=== PATIENT | female | born 1945 | race Two or more races ===

== ENCOUNTER 2024-06-28 10:25 | Inpatient (IN) | payer BC, OTHER ==
[~2024-06-28] VITALS: Ht 162.6 cm; Wt 105.5 kg
--- NOTE | 2024-06-28 12:01 | ED.PDOC ---
History of Present Illness(SKN HPI Comments 79 year old female presents to the ED with chief complaint of wound check. Patient reports that she has had a wound to the top of her right hand due to a cat biting her for the past 3 weeks. Patient relays that it has worsened over time with redness, swelling, and pain. Patient states she had seen a hand specialist and was advised by them to come to the ED for IV antibiotics before surgery could be recommended for her hand. Patient notes she had been taking oral antibiotics prescribed by urgent care when it was new, however, no relief in her symptoms had been noted. Patient denies any numbness, weakness, fever, chills, or headache. 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 Family History Family History: Reviewed,noncontributory to illness Social History Smoker: Non-Smoker Alcohol: Denies ETOH Use Drugs: Denies Drug Use Lives In: Home Constitutional: denies: chills, diaphoresis, fatigue, fever, malaise, sweats, weakness, others EENTM: denies: blurred vision, double vision, ear bleeding, ear discharge, ear drainage, ear pain, ear ringing, eye pain, eye redness, hearing loss, mouth pain, mouth swelling, nasal discharge, nose bleeding, nose congestion, nose pain, photophobia, tearing, throat pain, throat swelling, voice changes, others Respiratory: denies: cough, hemoptysis, orthopnea, SOB at rest, shortness of breath, SOB with excertion, stridor, wheezing, others Cardiovascular: denies: chest pain, dizzy spells, diaphoresis, Dyspnea on exertion, edema, irregular heart beat, left arm pain, lightheadedness, palpitations, PND, syncope, others Gastrointestinal: denies: abdomen distended, abdominal pain, blood streaked bowels, constipated, diarrhea, dysphagia, difficulty swallowing, hematemesis, melena, nausea, poor appetite, poor fluid intake, rectal bleeding, rectal pain, vomiting, others Genitourinary: denies: abnormal vagina bleeding, burning, dyspareunia, dysuria, flank pain, frequency, hematuria, incontinence, pain, , vagina discharge, urgency, others Neurological: denies: dizziness, fainting, headache, left sided numbness, left sided weakness, numbness, paresthesia, pre-existing deficit, right sided numbness, right sided weakness, seizure, speech problems, tingling, tremors, weakness, others Musculoskeletal: denies: back pain, gout, joint pain, joint swelling, muscle pain, muscle stiffness, neck pain, others Integumetry: reports: wounds (Right hand wound with redness and pain); denies: bruises, change in color, change in hair/nails, dryness, laceration, lesions, lumps, rash, others Allergic/Immunocompromised: denies: Difficulty Healing, Frequent Infections, Hives, Itching, others Hematologic/Lymphatic: denies: anemia, blood clots, easy bleeding, easy bruising, swollen glands, others Endocrine: denies: excessive hunger, excessive sweating, excessive thirst, excessive urination, flushing, intolerance to cold, intolerance to heat, unexplained weight gain, unexplained weight loss, others Psychiatric: denies: anxiety, bipolar disorder, depression, hopeless, panic disorder, schizophrenia, sleepless, suicidal, others All Other Systems: Reviewed and Negative Physical Exam General Appearance: Moderate Distress, Normal HEENT: Normal ENT Inspection, PERRL/EOMI Neck: Full Range of Motion, Non-Tender, Normal, Normal Inspection Respiratory: Chest Non-Tender, Lungs Clear, No Accessory Muscle Use, No Respiratory Distress, Normal Breath Sounds Cardiovascular: No Edema, No JVD, No Murmur, No Gallop, Normal Peripheral Pulses, Regular Rate/Rhythm Breast Exam: Deferred Gastrointestinal: No Organomegaly, Non Tender, No Pulsatile Mass, Normal Bowel Sounds, Soft Genitalia: Deferred Pelvic: Deferred Rectal: Deferred Extremities: No calf tenderness, Normal capillary refill, Normal inspection, Normal range of motion, Non-tender, No pedal edema Musculoskeletal : Apperance: Normal Neurologic: Alert, loader demolder II-XII nml as Tested, No Motor Deficits, Normal Affect, Normal Mood, No Sensory Deficits Cerebellar Function: Normal Reflexes: Normal Skin: Dry, Normal Color, Warm, Wounds (Right base of the thumb redness) Lymphatic: No Adenopathy Was a procedure done? Was a procedure done?: No Differential Diagnosis (INTG) Differential Diagnosis: Cellulitis X-Ray, Labs, Meds, VS Vital Signs Date Time Temp Pulse Resp B/P (MAP) Pulse Ox O2 Delivery O2 Flow Rate FiO2 06/28/24 10:30 97.9 98 16 156/79 (104) 97 Patient alert. Complaining of redness on right base of the thumb. Vitals stable. Answering all questions. Blood pressure slightly elevated. Her hand surgeon wanted her to be admitted for intravenous antibiotics. Establish intravenous access. Was given fluids. Was given Rocephin. Was given clindamycin. Explained to the patient. Time of 1ST Reevaluation: 12:57 Reevaluation 1ST: Unchanged Patient Education/Counseling: Diagnosis, Treatment Family Education/Counseling: No Family Present Departure 1 Departure Time of Disposition: 13:20 Impression: Primary Impression: Cellulitis Qualified Codes: L03.113 - Cellulitis of right upper limb Additional Impression: Hypertensive urgency Disposition: ADMITTED INPATIENT Admit to: Med Surg Condition: Guarded Critical Care Note Critical Care Time?: No Stability Stability form required: No Heart Score Heart Score: Heart Score Response (Comments) Value History N/A 0 EKG N/A 0 Age N/A 0 Risk Factors N/A 0 Troponin N/A 0 Total 0 I personally scribed for EMILY THIBODEAUX MD ([email or web address]) on 06/28/24 at 12:01. Electronically submitted by Don Rubio ([email or web address]). EMILY THIBODEAUX MD Jun 28, 2024 12:01
[2024-06-28 14:04] LABS: Mean Corpuscular Hemoglobin 34.8 pg (28.0-32.0); White Blood Cell 28.6 10^3/uL (4.4-10.8)
[2024-06-28 14:06] LABS: Hematocrit 39.2 % (36.0-46.0); Hemoglobin 13.5 g/dL (12.2-16.2); Mean Corpuscular Hgb Conc. 34.5 g/dL (32.0-36.0); Mean Corpuscular Volume 100.8 fL (80.0-100.0); Platelet Count (auto) 197 10^3/uL (140-450); Red Blood Cells 3.89 10^6/uL (4.0-5.20); Red Cell Distribution Width 14.2 % (11.8-14.3)
[2024-06-28 14:15] LABS: Chloride 112 mmol/L (98-107); Potassium 5.4 mmol/L (3.5-5.1); Sodium 141 mmol/L (136-145)
[2024-06-28 14:16] LABS: Anion Gap 4 (5-15); Carbon Dioxide 25 mmol/L (20-31)
[2024-06-28] MEDS: SODIUM CHLORIDE 0.9% 1,000 ML IV ONE (14:16)
[2024-06-28 14:17] LABS: Band Neutrophils % (manual) 0; Basophils % (manual) 0 (0.0-2.0); Blast Cells 0; Calcium 9.9 mg/dL (8.7-10.4); Eosinophils % (manual) 0 (0-7); Myelocytes % 0; Promyelocytes % 0; Reactive Lymphocytes 0
[2024-06-28 14:21] LABS: BUN/Creatinine Ratio 15.8 (10.0-20.0); Blood Urea Nitrogen 15 mg/dL (9-23); Glucose 108 mg/dL (74-106)
[2024-06-28] MEDS: cefTRIAXone 1GM/50ML D5W 50 ML IV ONE (14:24)
[2024-06-28] MEDS: CLINDAMYCIN 300MG IV 50 ML IV ONE (14:25)
[2024-06-28 14:41] LABS: Lymphocytes % (manual) 88 (10.0-50.0); Metamyelocytes % 1; Monocytes % (manual) 1 (0-12); Platelet Estimate Adequate
[2024-06-28] MEDS ORDERED: ONDANSETRON HCL 4 MG/2 ML VIAL IV PRN (21:15)
[2024-06-28] MEDS ORDERED: MORPHINE SULFATE INJ 2 MG/ml SYRG IV PRN ×2 (21:15)
[2024-06-28] MEDS ORDERED: NITROGLYCERIN 0.4 MG SL TAB SL PRN (21:15)
[2024-06-28 21:41] LABS: Hematocrit 40.6 % (36.0-46.0); Hemoglobin 13.9 g/dL (12.2-16.2); Mean Corpuscular Hemoglobin 34.4 pg (28.0-32.0); Mean Corpuscular Hgb Conc. 34.2 g/dL (32.0-36.0); Mean Corpuscular Volume 100.8 fL (80.0-100.0); Platelet Count (auto) 213 10^3/uL (140-450); Red Blood Cells 4.03 10^6/uL (4.0-5.20); Red Cell Distribution Width 14.3 % (11.8-14.3)
[2024-06-28 21:50] LABS: White Blood Cell 32.4 10^3/uL (4.4-10.8)
[2024-06-28 21:52] LABS: Band Neutrophils % (manual) 0; Basophils % (manual) 0 (0.0-2.0); Blast Cells 0; Metamyelocytes % 0; Myelocytes % 0; Promyelocytes % 0
[2024-06-28 21:55] LABS: Alkaline Phosphatase 45 U/L (46-116); Calcium 9.7 mg/dL (8.7-10.4); Carbon Dioxide 24 mmol/L (20-31); Chloride 112 mmol/L (98-107); Glucose 160 mg/dL (74-106); Potassium 4.8 mmol/L (3.5-5.1)
[2024-06-28 21:56] LABS: Albumin 4.2 g/dL (3.2-4.8); Anion Gap 5 (5-15); Aspartate Aminotransferase 11 U/L (13-40); BUN/Creatinine Ratio 11.5 (10.0-20.0); Bilirubin, Total 0.6 mg/dL (0.2-1.0); Blood Urea Nitrogen 13 mg/dL (9-23); Sodium 141 mmol/L (136-145)
[2024-06-28 22:00] LABS: Alanine Aminotransferase < 9 U/L (7-40)
[2024-06-28] MEDS: SODIUM CHLOR 0.9% PF (SALINE LOCK) 10ML VIAL/SYR IV SCH (22:00)
[2024-06-28 22:27] LABS: Eosinophils % (manual) 1 (0-7); Lymphocytes % (manual) 70 (10.0-50.0); Monocytes % (manual) 3 (0-12); Reactive Lymphocytes 16
[2024-06-28 22:28] LABS: Anisocytosis Slight; Macrocytosis Slight; Platelet Estimate Adequate
[2024-06-28] MEDS: ENOXAPARIN SOD 40 MG/0.4 ML SYRINGE SC SCH (22:53)
[2024-06-28 23:00] VITALS: RESP 16; O2SAT 96
[2024-06-28 23:14] LABS: INR 1.03 (0.9-1.15); Partial Thromboplastin Time 26.1 SEC (24.5-34.5); Prothrombin Time 10.9 sec (9.3-11.8)
[2024-06-28] MEDS ORDERED: VANCOMYCIN PER PHARMACY 0 MG IV SCH (23:15)
--- NOTE | 2024-06-28 23:19 | DVHHPRES ---
History of Present Illness Resident Creating Document: VICKY HANSEN RESIDENT History of Present Illness Anna Toussaint is a 79 years old female with a PMH of HTN, chronic lymphocytic leukemia, breast cancer, skin cancer presented to the ED with the chief complaints of nonhealing wound on the right wrist. Patient reported 6-8 weeks ago she had cat bite on the right breast, went to urgent care, tried several method and medications but unable to drain and heal. Again she went to urgent care today due to nonhealing, with intermittent pain, they advised to go to ED. patient reported no fever, nausea, vomiting, chills, sweats and other associated symptoms Past Medical History HTN, chronic lymphocytic leukemia, breast cancer, skin cancer Past Surgical History Left breast lumpectomy in 2019, gastric bypass, skin cancer surgery Family History Breast cancer in mother Past Social History Lives alone. Denies smoking, alcohol and other drug abuse Review of Systems Constitutional: No: Fever, Chills, Sweats, Weakness, Malaise, Other Eyes: No: Pain, Vision change, Conjunctivae inflammation, Eyelid inflammation, Other, Redness ENT: No: Ear pain, Ear discharge, Nose pain, Nose discharge, Nose congestion, Mouth pain, Mouth swelling, Throat pain, Throat swelling, Other Respiratory: No: Cough, Dry, Shortness of breath, SOB with excertion, Wheezing, Hemoptysis, Pleuritic Pain, Sputum, Wheezing, Other Cardiovascular: No: Chest Pain, Palpitations, Orthopnea, Paroxysmal Noc. Dyspnea, Edema, Lt Headedness, Other Gastrointestinal: No: Nausea, Vomiting, Abdominal Pain, Diarrhea, Constipation, Melena, Hematochezia, Other Genitourinary: No Dysuria, No Frequency, No Incontinence, No Hematuria, No Retention, No Other Musculoskeletal: No: other, neck pain, shoulder pain, arm pain, back pain, hand pain, leg pain, foot pain Skin: Other (Right wrist wound) Neurological: No: Weakness, Numbness, Incoordination, Change in speech, Confus ion, Seizures, Other Allergies: Coded Allergies: NO KNOWN ALLERGIES (Unverified , 06/28/24) Medications Current Medications Medications Dose Ordered Sig/Daphney Route Start Time Stop Time Status Last Admin Dose Admin Sodium Chloride 10 ml Q8HR IV 06/28/24 22:00 Ondansetron HCl 4 mg Q4HP PRN IV 06/28/24 21:15 Acetaminophen 650 mg Q6HP PRN PO 06/28/24 21:15 Morphine Sulfate 2 mg Q4HPRN PRN IV 06/28/24 21:15 Enoxaparin Sodium 40 mg DAILY SC 06/28/24 21:15 06/28/24 22:53 40 MG Nitroglycerin 0.4 mg Q5MINP PRN SL 06/28/24 21:15 Morphine Sulfate 2 mg Q30M PRN IV 06/28/24 21:15 Exam Vital Signs Vital Signs Date Time Temp Pulse Resp B/P (MAP) Pulse Ox O2 Delivery O2 Flow Rate FiO2 06/28/24 14:10 76 15 139/76 (97) 99 06/28/24 14:10 Room Air 06/28/24 10:30 97.9 Exam Pt is lying on bed General Appearance: Alert, Oriented X3, Cooperative, Not in acute distress HEENT: Atraumatic, Mucous membranes moist/pink Respiratory: Clear to auscultation, Normal air movement, No added sounds Cardiovascular: Regular rate, Normal S1, Normal S2, No murmurs Abdominal: Active bowel sounds, Soft, no distention, no tenderness Extremities: Right wrist wound, tender, redness, no draining. No edema, Normal pulses, No tenderness/swelling Skin: Right wrist wound, tender, redness, no draining Neuro: Normal speech, sensorimotor deficits none Psych/Mental Status: Mental status NL, Mood NL Nurse was there as sharperone during examination Labs/Xrays Labs Test 06/28/24 21:20 Range/Units White Blood Count 32.4 *H 4.4-10.8 10^3/uL Red Blood Count 4.03 4.0-5.20 10^6/uL Hemoglobin 13.9 12.2-16.2 g/dL Hematocrit 40.6 36.0-46.0 % Mean Corpuscular Volume 100.8 H 80.0-100.0 fL Mean Corpuscular Hemoglobin 34.4 H 28.0-32.0 pg Mean Corpuscular Hemoglobin Concent 34.2 32.0-36.0 g/dL Red Cell Distribution Width 14.3 11.8-14.3 % Platelet Count 213 140-450 10^3/uL Mean Platelet Volume 6.9 6.9-10.8 fL Neutrophils (%) (Auto) 37.0-80.0 % Lymphocytes (%) (Auto) 10.0-50.0 % Monocytes (%) (Auto) 0.0-12.0 % Basophils (%) (Auto) 0.0-2.0 % Neutrophils # (Auto) 1.6-8.6 10 ^3/uL Lymphocytes # (Auto) 0.4-5.4 10 ^3/uL Monocytes # (Auto) 0-1.3 10 ^3/uL Differential Total Cells Counted 100.0 100 Neutrophils % (Manual) 10 L 37.0-80.0 Band Neutrophils % (Manual) 0 Lymphocytes % (Manual) 70 H 10.0-50.0 Monocytes % (Manual) 3 0-12 Eosinophils % (Manual) 1 0-7 Basophils % (Manual) 0 0.0-2.0 Metamyelocytes % (manual) 0 Myelocytes % (Manual) 0 Promyelocytes % (Manual) 0 Blast Cells % (Manual) 0 Reactive Lymphocytes 16 Platelet Estimate Adequate Anisocytosis (manual) Slight Macrocytosis Slight Sodium Level 141 136-145 mmol/L Potassium Level 4.8 3.5-5.1 mmol/L Chloride Level 112 H 98-107 mmol/L Carbon Dioxide Level 24 20-31 mmol/L Anion Gap 5 5-15 Blood Urea Nitrogen 13 9-23 mg/dL Creatinine 1.13 H 0.550-1.02 mg/dL Glomerular Filtration Rate Calc 50 >90 mL/min BUN/Creatinine Ratio 11.5 10.0-20.0 Serum Glucose 160 H 74-106 mg/dL Calcium Level 9.7 8.7-10.4 mg/dL Total Bilirubin 0.6 0.2-1.0 mg/dL Aspartate Amino Transferase (AST) 11 L 13-40 U/L Alanine Aminotransferase (ALT) < 9 7-40 U/L Alkaline Phosphatase 45 L 46-116 U/L B-Type Natriuretic Peptide 51.03 0-100 pg/mL Total Protein 7.0 5.7-8.2 g/dL Albumin 4.2 3.2-4.8 g/dL Assessment/Plan Assessment/Plan # right wrist wound abscess vs cellulitis -ordered wound culture and wound consult -initially given Rocephin and clindamycin -currently on vancomycin -consulted surgeon for further evaluation # leukocytosis likely due to chronic lymphocytic leukemia -monitor labs for now # # Hyperkalemia - Monitor lab # SIMA likely VMN -monitor lab -encourage oral fluids # uncontrolled hypertension -continuously monitor blood pressure -resume home meds Lovenox ppx for now No GIB ppx NPo after midnight Reconciled home meds Goals of care discussed with the patient for more than 27 minutes: Full code status Case management discussed with Dr. Song, patient and nurse Plan discussed with: Patient My Orders Orders - VICKY HANSEN RESIDENT Procedure Category Date Status Time Admit ADMIT 06/28/24 Transmitted 21:01 Allergies MELECIO 06/28/24 In Process 21:01 Code Status CODE 06/28/24 Transmitted 21:01 2 Gm Sodium Diet DIET 06/29/24 Transmitted Breakfast Sodium Chloride Lock PHA 06/28/24 In Process (Saline Lock Ns) 22:00 Ondansetron Hcl PHA 06/28/24 In Process (Zofran) 21:15 Complete Blood Count LAB 06/29/24 Verified 04:00 Comprehensive LAB 06/29/24 Verified Metabolic Panel 04:00 Cardiac DIET 06/29/24 Transmitted Diet-2gna,Lofat,Lochol Breakfast Acetaminophen Tablet PHA 06/28/24 In Process (Tylenol Tablet) 21:15 Morphine Sulfate PHA 06/28/24 In Process Injection 21:15 Enoxaparin Sodium PHA 06/28/24 In Process (Lovenox) 21:15 Nitroglycerin PHA 06/28/24 In Process Sublingual (Ntrostat 21:15 Morphine Sulfate PHA 06/28/24 In Process Injection 21:15 Oxygen By Nasal RT 06/28/24 Transmitted Cannula 21:01 Stat Ekg For Chest MELECIO 06/28/24 In Process Pain 21:01 Notify Of Changes MELECIO 06/28/24 In Process From Base 21:01 Coach Builder For MELECIO 06/28/24 In Process 24 Hours 21:01 Emergency Dysrhythmia MELECIO 06/28/24 In Process Protocol 21:01 Rhythm Strips Once MELECIO 06/28/24 In Process Every Shift 21:01 C-Reactive Protein LAB 06/28/24 In Process 22:39 Lactic Acid W/ Reflex LAB 06/28/24 In Process Order 22:39 Hemoglobin A1c LAB 06/28/24 In Process 22:39 Drug Screen LAB 06/28/24 Logged 22:39 Vitamin D, 25-Hydroxy LAB 06/28/24 In Process 22:39 Vitamin B12 LAB 06/28/24 In Process 22:39 Urinalysis LAB 06/28/24 Logged 22:39 Thyroid Stimulating LAB 06/28/24 In Process Hormone 22:39 PTPTT LAB 06/28/24 In Process 22:39 Folate (Folic Acid) LAB 06/28/24 In Process 23:01 Vancomycin Per PHA 06/28/24 Logged Pharmacy 23:15 * Wound Consult CONS 06/28/24 Transmitted Wound Culture W/ Gs KRYSTAL 06/28/24 Logged 23:06 * Surgical Consult CONS 06/28/24 Transmitted Hydralazine Injection PHA 06/28/24 Verified (Apresoline Inject 23:15 Date of Service: Jun 28, 2024 Billing Provider: ROSE SONG MD Common Visit Codes: 47316-JOTKRAC INP/OBS CARE (HIGH) Secondary Visit Codes: 99480-[id number] CARE PLAN 30 MINUTES VICKY HANSEN RESIDENT Jun 28, 2024 23:19 ROSE SONG MD Jun 29, 2024 13:36
[2024-06-28] MEDS: VANCOMYCIN 1GM/250ML KIT 200 ML IV SCH (23:52)
[2024-06-29] VITALS (9 sets, daily range): BP systolic 100–140; BP diastolic 60–75; PULSE 60–94; RESP 16–20; TEMP 97.7–98.7; O2SAT 93–98
[2024-06-29] MEDS ORDERED: METO25TA5 PO (02:09)
[2024-06-29] MEDS ORDERED: ANAS1TAB7 PO (02:09)
[2024-06-29] MEDS ORDERED: LOSA-533 PO (02:09)
[2024-06-29] MEDS ORDERED: IBAN1TAB2 PO (02:09)
[2024-06-29 05:51] LABS: Hematocrit 33.8 % (36.0-46.0); Red Cell Distribution Width 14.2 % (11.8-14.3); White Blood Cell 25.5 10^3/uL (4.4-10.8)
[2024-06-29 05:54] LABS: Hemoglobin 11.4 g/dL (12.2-16.2); Mean Corpuscular Hemoglobin 34.3 pg (28.0-32.0); Mean Corpuscular Hgb Conc. 33.9 g/dL (32.0-36.0); Mean Corpuscular Volume 101.3 fL (80.0-100.0); Platelet Count (auto) 163 10^3/uL (140-450); Red Blood Cells 3.33 10^6/uL (4.0-5.20)
--- NOTE | 2024-06-29 05:56 | DVH ---
CHEST RADIOGRAPH Indication:sob Technique: Single frontal view of the chest was obtained COMPARISON: None FINDINGS: Lines and Tubes: None Lungs: Mild congestion Pleura: No effusion. No pneumothorax. Cardiomediastinal contours: Unremarkable Bones: Unremarkable IMPRESSION: Mild congestion
[2024-06-29 06:08] LABS: Albumin 3.4 g/dL (3.2-4.8); Alkaline Phosphatase 36 U/L (46-116); Anion Gap 9 (5-15); Aspartate Aminotransferase 10 U/L (13-40); BUN/Creatinine Ratio 17.9 (10.0-20.0); Blood Urea Nitrogen 15 mg/dL (9-23); Calcium 8.6 mg/dL (8.7-10.4); Carbon Dioxide 20 mmol/L (20-31); Chloride 114 mmol/L (98-107); Glucose 99 mg/dL (74-106); Potassium 4.2 mmol/L (3.5-5.1); Sodium 143 mmol/L (136-145)
[2024-06-29 06:09] LABS: Bilirubin, Total 0.6 mg/dL (0.2-1.0); Total Protein 5.4 g/dL (5.7-8.2)
[2024-06-29 06:14] LABS: Band Neutrophils % (manual) 0; Basophils % (manual) 0 (0.0-2.0); Blast Cells 0; Eosinophils % (manual) 0 (0-7); Metamyelocytes % 0; Monocytes % (manual) 0 (0-12); Myelocytes % 0; Promyelocytes % 0
[2024-06-29 06:18] LABS: Alanine Aminotransferase < 9 U/L (7-40)
[2024-06-29 08:57] LABS: Lymphocytes % (manual) 81 (10.0-50.0); Macrocytosis Slight; Platelet Estimate Adequate; Reactive Lymphocytes 5
[2024-06-29] MEDS: VANCOMYCIN 750mg/150ml 150 ML IV SCH (10:05)
[2024-06-29] MEDS: IOHEXOL 350 MG/ML 100ML IJ ONE (11:28)
--- NOTE | 2024-06-29 13:20 | DVH ---
CLINICAL INFORMATION: 79 years old, Female; CAT BITE RIGHT WRIST. TECHNIQUE: Axial CT images of the CT RT UPPER EXTREMITY WITH CONT were obtained with IV contrast. Cor onal and sagittal reformatted images were obtained, reviewed, and stored. 3D reconstructed images wer e created at an independent workstation with concurrent physician supervision. All CT scans at this medical facility are performed using dose modulation techniques as appropriate to a performed exam i ncluding the following: Automated exposure control was utilized; adjustment of the MA and/or KV accor ding to patient size; and use of iterative reconstruction technique. CTDIvol = 7.8 mGy DLP = 252.62 mGy-cm COMPARISON: None FINDINGS: No acute fracture or dislocation. No abscess. No phlegmon. Small fluid collection in the skin measuring 1.7 cm at the medial wrist at the level of the 2nd proxi mal metacarpal. IMPRESSION: Possible skin boil in the skin measuring 1.7 cm at the medial wrist at the level of the 2nd metacarpa l.
[2024-06-29] MEDS ORDERED: fentaNYL CITRATE 100 MCG/2 ML VL ONE (14:08)
[2024-06-29] MEDS ORDERED: SODIUM CHLORIDE LOCK 10 ML ONE (14:08)
[2024-06-29] MEDS ORDERED: PROPOFOL 10 MG/ML 20 ML IV ONE (14:08)
[2024-06-29] MEDS ORDERED: MIDAZOLAM HCL 2MG/2ML 2ml VIAL (1mg/ml) ONE (14:09)
[2024-06-29] MEDS ORDERED: KETAMINE 50mg/ML 1ml syringe ONE (14:11)
[2024-06-29] MEDS: LIDOCAINE 1% HCL (LOCAL ANESTH.) INJ 20ML MDV ONE (14:12)
--- NOTE | 2024-06-29 14:13 | DVHINCON2 ---
Date of service: Jun 29, 2024 History of Present Illness 79-year-old [id number] female complaining of a chronic nonhealing wound on her right wrist secondary to a cat bite. Past Medical History Chronic lymphocytic leukemia. Hypertension. History of breast cancer status post left lumpectomy. Past Surgical History Left lumpectomy. Family History: Colon cancer G8 MOTHER FH: breast cancer G8 MOTHER FH: lung disease G8 FATHER FHx: liver cancer G8 BROTHER Hepatitis B G8 BROTHER Hypertension G8 FATHER Family History Noncontributory Social History No alcohol, tobacco, IV drug use Allergies: Coded Allergies: NO KNOWN ALLERGIES (Unverified , 06/28/24) Home Meds Reported Medications Ibandronate Sodium (IBANDRONATE SODIUM) 150 Mg Tab, 150 MG PO monthly, TAB 06/29/24 Anastrozole (Anastrozole) 1 Mg Tab, 1 TAB PO DAILY, #30 TAB 5 Refills 06/29/24 Losartan Potassium (Losartan Potassium) 25 Mg Tab, 25 MG PO DAILY for 30 Days, MG 06/29/24 Metoprolol Tartrate (Metoprolol Tartrate) 25 Mg Tab, 25 MG PO DAILY, MG 06/29/24 Current Medications Current Medications Medications (Trade) Dose Ordered Sig/Dapheny Route PRN Reason Start Time Stop Time Status Last Admin Sodium Chloride (Saline Lock Ns) 10 ml Q8HR IV 06/28/24 22:00 06/29/24 06:22 Ondansetron HCl (Zofran) 4 mg Q4HP PRN IV NAUSEA / VOMITING 06/28/24 21:15 Acetaminophen (Tylenol Tablet) 650 mg Q6HP PRN PO PAIN SCALE 1-3 OR TEMP>100.4 06/28/24 21:15 Morphine Sulfate 2 mg Q4HPRN PRN IV SEVERE PAIN (7-10 PAIN SCALE) 06/28/24 21:15 Enoxaparin Sodium (Lovenox) 40 mg DAILY SC 06/28/24 21:15 06/29/24 09:16 Nitroglycerin (Ntrostat Sublingual) 0.4 mg Q5MINP PRN SL FOR CHEST PAIN 06/28/24 21:15 Morphine Sulfate 2 mg Q30M PRN IV FOR CHEST PAIN 06/28/24 21:15 Vancomycin HCl 0 ml @ 0 mls/hr UD IV 06/28/24 23:15 Vancomycin HCl 200 ml @ 100 mls/hr Q2H IV 06/28/24 23:15 06/29/24 03:14 DC 06/29/24 02:05 Hydralazine HCl (Apresoline Injection) 10 mg Q6HP PRN IV SBP>150 06/28/24 23:15 Vancomycin HCl 150 ml @ 150 mls/hr Q12H IV 06/29/24 10:00 06/29/24 10:05 Hydromorphone HCl (Dilaudid Injection) 0.5 mg Q10M PRN IV SEVERE PAIN (7-10 PAIN SCALE) 06/29/24 14:15 06/29/24 14:56 UNV Hydromorphone HCl (Dilaudid Injection) 0.25 mg Q10M PRN IV MODERATE PAIN (4-6 PAIN SCALE) 06/29/24 14:15 06/29/24 14:46 UNV Morphine Sulfate 1 mg Q30M PRN IV SEVERE PAIN (7-10 PAIN SCALE) 06/29/24 14:15 06/29/24 16:16 UNV Vital Signs Vital Signs Date Time Temp Pulse Resp B/P (MAP) Pulse Ox O2 Delivery O2 Flow Rate FiO2 06/29/24 11:54 98.5 83 18 140/75 (96) 98 98.5 06/29/24 08:00 Room Air* 0 21 Physical Exam GEN: Elderly female in no acute distress. Alert. HEENT: Normocephalic atraumatic. Moist mucous membranes. Anicteric sclerae. CV: RRR Respiratory: CTAB ABD: Soft. Nontender nondistended Right upper extremity: There is a 2 cm hypertrophic erythematous inflamed tissue with a black necrotic eschar in the center with tenderness to palpation. Patient has full range of motion in her right hand. CT of the right wrist/hand showed small fluid collection in the skin measuring 1.7 cm at the medial wrist at the level of the 2nd proximal metacarpal Labs/Diagnostic Data Labs Test 06/29/24 05:17 06/28/24 21:20 Range/Units White Blood Count 25.5 H 4.4-10.8 10^3/uL Red Blood Count 3.33 L 4.0-5.20 10^6/uL Hemoglobin 11.4 #L 12.2-16.2 g/dL Hematocrit 33.8 #L 36.0-46.0 % Mean Corpuscular Volume 101.3 H 80.0-100.0 fL Mean Corpuscular Hemoglobin 34.3 H 28.0-32.0 pg Mean Corpuscular Hemoglobin Concent 33.9 32.0-36.0 g/dL Red Cell Distribution Width 14.2 11.8-14.3 % Platelet Count 163 140-450 10^3/uL Mean Platelet Volume 6.9 6.9-10.8 fL Neutrophils (%) (Auto) 37.0-80.0 % Lymphocytes (%) (Auto) 10.0-50.0 % Monocytes (%) (Auto) 0.0-12.0 % Basophils (%) (Auto) 0.0-2.0 % Neutrophils # (Auto) 1.6-8.6 10 ^3/uL Lymphocytes # (Auto) 0.4-5.4 10 ^3/uL Monocytes # (Auto) 0-1.3 10 ^3/uL Differential Total Cells Counted 100.0 100 Neutrophils % (Manual) 14 L 37.0-80.0 Band Neutrophils % (Manual) 0 Lymphocytes % (Manual) 81 H 10.0-50.0 Monocytes % (Manual) 0 0-12 Eosinophils % (Manual) 0 0-7 Basophils % (Manual) 0 0.0-2.0 Metamyelocytes % (manual) 0 Myelocytes % (Manual) 0 Promyelocytes % (Manual) 0 Blast Cells % (Manual) 0 Reactive Lymphocytes 5 Platelet Estimate Adequate Macrocytosis Slight Sodium Level 143 136-145 mmol/L Potassium Level 4.2 3.5-5.1 mmol/L Chloride Level 114 H 98-107 mmol/L Carbon Dioxide Level 20 20-31 mmol/L Anion Gap 9 5-15 Blood Urea Nitrogen 15 9-23 mg/dL Creatinine 0.84 0.550-1.02 mg/dL Glomerular Filtration Rate Calc 72 >90 mL/min BUN/Creatinine Ratio 17.9 10.0-20.0 Serum Glucose 99 74-106 mg/dL Calcium Level 8.6 L 8.7-10.4 mg/dL Total Bilirubin 0.6 0.2-1.0 mg/dL Aspartate Amino Transferase (AST) 10 L 13-40 U/L Alanine Aminotransferase (ALT) < 9 7-40 U/L Alkaline Phosphatase 36 L 46-116 U/L Total Protein 5.4 L 5.7-8.2 g/dL Albumin 3.4 3.2-4.8 g/dL Anisocytosis (manual) Slight Prothrombin Time 10.9 9.3-11.8 sec Prothrombin Time INR 1.03 0.9-1.15 Activated Partial Thromboplast Time 26.1 24.5-34.5 SEC Hemoglobin A1c 4.9 <5.7 % A1C Lactic Acid Level 1.2 0.4-2.0 mmol/L C-Reactive Protein High Sensitivity 0.16 <1.0 mg/dL B-Type Natriuretic Peptide 51.03 0-100 pg/mL Vitamin B12 Level 799 211-911 pg/mL Vitamin D 25-Hydroxy 89.6 30.0-100 ng/mL Folic Acid 17.85 >5.38 ng/mL Thyroid Stimulating Hormone (TSH) 2.93 0.55-4.78 uIU/mL Assessment 1. Right wrist abscess Plan/Recommendation 1. Incision and drainage of right wrist abscess Informed consent: The surgery and its risks including but not limited to infection, bleeding, open wound requiring local wound care, possible numbness in the area, possible perioperative FL or stroke were explained to the patient. All questions were answered to her satisfaction. She expressed verbal understanding and wished to proceed with the surgery. Plan discussed with: Patient MELANIA CHAKRABORTY MD Jun 29, 2024 14:13
[2024-06-29] MEDS: METOCLOPRAMIDE HCL 5MG/ml INJ 2ml VIAL IV ONE (14:15)
[2024-06-29] MEDS ORDERED: MORPHINE SULFATE INJ 2 MG/ml SYRG IV PRN (14:15)
[2024-06-29] MEDS ORDERED: HYDROmorphone HCL 2 MG/ML VL/or syr IV PRN (14:15)
--- NOTE | 2024-06-29 14:31 | DVHPN2 ---
Reviewed: Care Plan, H&P, Labs, Medications, Previous Orders, Radiology Changes from previous H/P or p: No Changes General: Per HPI Eyes: No Pain, No Vision change, No Conjunctivae inflammation, No Eyelid inflammation, No Other, No Redness ENT: No Ear pain, No Ear discharge, No Nose pain, No Nose discharge, No Nose congestion, No Mouth pain, No Mouth swelling, No Throat pain, No Throat swelling, No Other Cardiovascular: No Chest Pain, No Palpitations, No Orthopnea, No Paroxysmal Noc. Dyspnea, No Edema, No Lt Headedness, No Other Respiratory: No Cough, No Dry, No Shortness of breath, No SOB with excertion, No Wheezing, No Hemoptysis, No Pleuritic Pain, No Sputum, No Other Gastrointestinal: No Nausea, No Vomiting, No Abdominal Pain, No Diarrhea, No Constipation, No Melena, No Hematochezia, No Other Genitourinary: No Dysuria, No Frequency, No Incontinence, No Hematuria, No Retention, No Other Musculoskeletal: No other, No neck pain, No shoulder pain, No arm pain, No back pain, No hand pain, No leg pain, No foot pain Skin: Other (Right wrist wound) Objective Vitals Vital Signs Date Time Temp Pulse Resp B/P (MAP) Pulse Ox O2 Delivery O2 Flow Rate FiO2 06/29/24 11:54 98.5 83 18 140/75 (96) 98 98.5 06/29/24 08:00 Room Air* 0 21 Intake/Output Intake and Output 06/29/24 07:00 Intake Total 450 ml Balance 450 ml Intake Oral 50 ml IV Total 400 ml # Voids 1 General Appearance: Alert, Oriented X3, Cooperative, No acute distress Lungs: Clear to auscultation, Normal air movement Cardiovascular: Normal S1, Normal S2 Abdomen: Normal bowel sounds Medications Current Medications Medications Dose Ordered Sig/Daphney Route Start Time Stop Time Status Last Admin Dose Admin Sodium Chloride 10 ml Q8HR IV 06/28/24 22:00 06/29/24 06:22 10 ML Ondansetron HCl 4 mg Q4HP PRN IV 06/28/24 21:15 Acetaminophen 650 mg Q6HP PRN PO 06/28/24 21:15 Morphine Sulfate 2 mg Q4HPRN PRN IV 06/28/24 21:15 Enoxaparin Sodium 40 mg DAILY SC 06/28/24 21:15 06/29/24 09:16 40 MG Nitroglycerin 0.4 mg Q5MINP PRN SL 06/28/24 21:15 Morphine Sulfate 2 mg Q30M PRN IV 06/28/24 21:15 Vancomycin HCl 0 ml @ 0 mls/hr UD IV 06/28/24 23:15 Hydralazine HCl 10 mg Q6HP PRN IV 06/28/24 23:15 Vancomycin HCl 150 ml @ 150 mls/hr Q12H IV 06/29/24 10:00 06/29/24 10:05 150 MLS/HR Hydromorphone HCl 0.5 mg Q10M PRN IV 06/29/24 14:15 06/29/24 14:56 Hydromorphone HCl 0.25 mg Q10M PRN IV 06/29/24 14:15 06/29/24 14:46 Morphine Sulfate 1 mg Q30M PRN IV 06/29/24 14:15 06/29/24 16:16 Laboratory Results Laboratory Tests 06/29/24 05:17 Chemistry Test 06/28/24 21:20 06/29/24 05:17 Albumin 4.2 g/dL (3.2-4.8) 3.4 g/dL (3.2-4.8) Calcium Level 9.7 mg/dL (8.7-10.4) 8.6 mg/dL (8.7-10.4) L Total Protein 7.0 g/dL (5.7-8.2) 5.4 g/dL (5.7-8.2) L Coagulation Test 06/28/24 21:20 Prothrombin Time 10.9 sec (9.3-11.8) Prothrombin Time INR 1.03 (0.9-1.15) Activated Partial Thromboplast Time 26.1 SEC (24.5-34.5) Cardiac Markers Test 06/28/24 21:20 B-Type Natriuretic Peptide 51.03 pg/mL (0-100) LFT Test 06/28/24 21:20 06/29/24 05:17 Alanine Aminotransferase (ALT) < 9 U/L (7-40) < 9 U/L (7-40) Alkaline Phosphatase 45 U/L (46-116) L 36 U/L (46-116) L Aspartate Amino Transferase (AST) 11 U/L (13-40) L 10 U/L (13-40) L Total Bilirubin 0.6 mg/dL (0.2-1.0) 0.6 mg/dL (0.2-1.0) HgA1c, TSH Test 06/28/24 21:20 Hemoglobin A1c 4.9 % A1C (<5.7) Thyroid Stimulating Hormone (TSH) 2.93 uIU/mL (0.55-4.78) Labs and/or images reviewed: Labs reviewed by me, Image(s) reviewed by me Assessment/Plan Assessment/Plan Anna Toussiant is a 79 years old female with a PMH of HTN, chronic lymphocytic leukemia, breast cancer, skin cancer presented to the ED with the chief complaints of nonhealing wound on the right wrist. Patient reported 6-8 weeks ago she had cat bite on the right breast, went to urgent care, tried several method and medications but unable to drain and heal. Again she went to urgent care today due to nonhealing, with intermittent pain, they advised to go to ED. patient reported no fever, nausea, vomiting, chills, sweats and other associated symptoms # right wrist wound abscess vs cellulitis -ordered wound culture and wound consult -initially given Rocephin and clindamycin -currently on vancomycin -consulted surgeon for further evaluation # leukocytosis likely due to chronic lymphocytic leukemia -monitor labs for now # # Hyperkalemia - Monitor lab # SIMA likely [facility] -monitor lab -encourage oral fluids # uncontrolled hypertension -continuously monitor blood pressure -resume home meds 08/29/2023: pt undergoing I&D today Plan discussed with: Patient Date of Service: Jun 29, 2024 Billing Provider: GAVINO BEE DO Common Visit Codes: [id number] INP/OBS CARE(HIGH) GAVINO BEE DO Jun 29, 2024 14:31
[2024-06-29] MEDS: ceFAZolin 2 GM/D5W100ml 100 ML IV ONE (14:32)
[2024-06-29] MEDS ORDERED: LIDOCAINE W/ EPINEPHRINE 2% INJ 20ML VIAL ONE (15:07)
[2024-06-29] MEDS: HYDROmorphone HCL 2 MG/ML VL/or syr IV PRN (15:34)
[2024-06-29] MEDS: hydrALAZINE HCL 20 MG/ML VL IV PRN (16:22)
[2024-06-29] MEDS: PIPERACILLIN-TAZOB 3.375GM 100 ML IV SCH (17:00)
[2024-06-29] MEDS: METOPROLOL TARTRATE 25 MG TAB PO SCH (21:34)
[2024-06-29] MEDS: ACETAMINOPHEN 325 MG TAB PO PRN (21:41)
[2024-06-30] VITALS (7 sets, daily range): BP systolic 111–121; BP diastolic 48–73; PULSE 63–74; RESP 16–18; TEMP 96.7–98.4; O2SAT 93–96
[2024-06-30] MEDS: LOSARTAN POTASSIUM 25 MG TAB PO SCH (09:38)
--- NOTE | 2024-06-30 12:09 | DVHPN2 ---
Progress Note - Dictate Date Seen: Jun 30, 2024 Medical Necessity Reason Pt with a Central, PICC or Fol: No Subjective E: no major events o/n. no complaints. vital signs Vital Sign Date Time Temp Pulse Resp B/P (MAP) Pulse Ox O2 Delivery O2 Flow Rate FiO2 06/30/24 09:38 74 121/66 06/30/24 08:00 17 93 Room Air* 0 21 06/30/24 05:00 98.0 98.0 Total Intake and Output 06/29/24 06/29/24 06/30/24 15:00 23:00 07:00 Intake Total 250 ml 400 ml 900 ml Balance 250 ml 400 ml 900 ml medications Current Medications Medications Dose Ordered Sig/Daphney Route Start Time Stop Time Status Last Admin Dose Admin Sodium Chloride 10 ml Q8HR IV 06/28/24 22:00 06/30/24 05:38 10 ML Ondansetron HCl 4 mg Q4HP PRN IV 06/28/24 21:15 Acetaminophen 650 mg Q6HP PRN PO 06/28/24 21:15 06/30/24 09:37 650 MG Morphine Sulfate 2 mg Q4HPRN PRN IV 06/28/24 21:15 Enoxaparin Sodium 40 mg DAILY SC 06/28/24 21:15 06/30/24 09:38 40 MG Nitroglycerin 0.4 mg Q5MINP PRN SL 06/28/24 21:15 Morphine Sulfate 2 mg Q30M PRN IV 06/28/24 21:15 Vancomycin HCl 0 ml @ 0 mls/hr UD IV 06/28/24 23:15 Hydralazine HCl 10 mg Q6HP PRN IV 06/28/24 23:15 06/29/24 16:22 10 MG Vancomycin HCl 150 ml @ 150 mls/hr Q12H IV 06/29/24 10:00 06/29/24 21:36 150 MLS/HR Losartan Potassium 25 mg DAILY PO 06/30/24 10:00 06/30/24 09:38 25 MG Metoprolol Tartrate 25 mg BID PO 06/29/24 22:00 06/30/24 09:38 25 MG Piperacillin Sod/ Tazobactam Sod 100 ml @ 25 mls/hr Q8H IV 06/29/24 16:00 06/30/24 08:00 25 MLS/HR objective GEN: NAD RIGHT HAND: surgical site clean. no bleeding. laboratory and microbiology Laboratory Tests 06/30/24 09:56 06/29/24 05:17 Test 06/29/24 05:17 Range/Units Serum Glucose 99 74-106 mg/dL Assessment/Plan A: 1. s/p I+D right hand/wrist abscess stable from surgery POV. P: 1. local wound care (BID moist to dry or qday with xeroform) 2. f/u in clinic on 07/11. Plan discussed with: Patient MELANIA CHAKRABORTY MD Jun 30, 2024 12:09
--- NOTE | 2024-06-30 15:33 | DVHPN2 ---
Reviewed: Care Plan, H&P, Labs, Medications, Previous Orders, Radiology Changes from previous H/P or p: No Changes General: Per HPI Eyes: No Pain, No Vision change, No Conjunctivae inflammation, No Eyelid inflammation, No Other, No Redness ENT: No Ear pain, No Ear discharge, No Nose pain, No Nose discharge, No Nose congestion, No Mouth pain, No Mouth swelling, No Throat pain, No Throat swelling, No Other Cardiovascular: No Chest Pain, No Palpitations, No Orthopnea, No Paroxysmal Noc. Dyspnea, No Edema, No Lt Headedness, No Other Respiratory: No Cough, No Dry, No Shortness of breath, No SOB with excertion, No Wheezing, No Hemoptysis, No Pleuritic Pain, No Sputum, No Other Gastrointestinal: No Nausea, No Vomiting, No Abdominal Pain, No Diarrhea, No Constipation, No Melena, No Hematochezia, No Other Genitourinary: No Dysuria, No Frequency, No Incontinence, No Hematuria, No Retention, No Other Musculoskeletal: No other, No neck pain, No shoulder pain, No arm pain, No back pain, No hand pain, No leg pain, No foot pain Skin: Other (Right wrist wound) Objective Vitals Vital Signs Date Time Temp Pulse Resp B/P (MAP) Pulse Ox O2 Delivery O2 Flow Rate FiO2 06/30/24 12:41 97.9 63 18 120/48 (72) 96 97.9 06/30/24 08:00 Room Air* 0 21 Intake/Output Intake and Output 06/30/24 07:00 Intake Total 1550 ml Balance 1550 ml Intake Oral 800 ml IV Total 750 ml # Voids 2 General Appearance: Alert, Oriented X3, Cooperative, No acute distress Lungs: Clear to auscultation, Normal air movement Cardiovascular: Normal S1, Normal S2 Abdomen: Normal bowel sounds Medications Current Medications Medications Dose Ordered Sig/Daphney Route Start Time Stop Time Status Last Admin Dose Admin Sodium Chloride 10 ml Q8HR IV 06/28/24 22:00 06/30/24 13:42 10 ML Ondansetron HCl 4 mg Q4HP PRN IV 06/28/24 21:15 Acetaminophen 650 mg Q6HP PRN PO 06/28/24 21:15 06/30/24 09:37 650 MG Morphine Sulfate 2 mg Q4HPRN PRN IV 06/28/24 21:15 Enoxaparin Sodium 40 mg DAILY SC 06/28/24 21:15 06/30/24 09:38 40 MG Nitroglycerin 0.4 mg Q5MINP PRN SL 06/28/24 21:15 Morphine Sulfate 2 mg Q30M PRN IV 06/28/24 21:15 Vancomycin HCl 0 ml @ 0 mls/hr UD IV 06/28/24 23:15 Hydralazine HCl 10 mg Q6HP PRN IV 06/28/24 23:15 06/29/24 16:22 10 MG Vancomycin HCl 150 ml @ 150 mls/hr Q12H IV 06/29/24 10:00 06/30/24 13:21 150 MLS/HR Losartan Potassium 25 mg DAILY PO 06/30/24 10:00 06/30/24 09:38 25 MG Metoprolol Tartrate 25 mg BID PO 06/29/24 22:00 06/30/24 09:38 25 MG Piperacillin Sod/ Tazobactam Sod 100 ml @ 25 mls/hr Q8H IV 06/29/24 16:00 06/30/24 08:00 25 MLS/HR Laboratory Results Laboratory Tests 06/29/24 05:17 06/30/24 09:56 Microbiology Microbiology Date/Time Source Procedure Growth Status 06/29/24 15:32 Hand Right Gram Stain - Final Resulted 06/29/24 15:32 Hand Right Anaerobic Culture - Preliminary Resulted 06/29/24 15:32 Hand Right Aerobic Culture - Preliminary Resulted Assessment/Plan Assessment/Plan Anna Toussaint is a 79 years old female with a PMH of HTN, chronic lymphocytic leukemia, breast cancer, skin cancer presented to the ED with the chief complaints of nonhealing wound on the right wrist. Patient reported 6-8 weeks ago she had cat bite on the right breast, went to urgent care, tried several method and medications but unable to drain and heal. Again she went to urgent care today due to nonhealing, with intermittent pain, they advised to go to ED. patient reported no fever, nausea, vomiting, chills, sweats and other associated symptoms # right wrist wound abscess vs cellulitis -ordered wound culture and wound consult -initially given Rocephin and clindamycin -currently on vancomycin -consulted surgeon for further evaluation # leukocytosis likely due to chronic lymphocytic leukemia -monitor labs for now # # Hyperkalemia - Monitor lab # SIMA likely [facility] -monitor lab -encourage oral fluids # uncontrolled hypertension -continuously monitor blood pressure -resume home meds 06/29/2024: pt undergoing I&D today 06/30/2024: continue with IV Abx for another Plan discussed with: Patient My Orders Orders - GAVINO BEE DO Procedure Category Date Status Time Dietary NOTICE 06/30/24 Transmitted Recommendations 14:12 Date of Service: Jun 30, 2024 Billing Provider: GAVINO BEE DO Common Visit Codes: [id number] INP/OBS CARE(HIGH) GAVINO BEE DO Jun 30, 2024 15:33
[2024-07-01 01:00] VITALS: BP 137/68; PULSE 70; RESP 17; TEMP 98; O2SAT 97
[2024-07-01 05:00] VITALS: BP 130/67; PULSE 78; RESP 18; TEMP 97.4; O2SAT 95
[2024-07-01 06:03] LABS: Hemoglobin 11.2 g/dL (12.2-16.2); Red Cell Distribution Width 14.2 % (11.8-14.3)
[2024-07-01 06:05] LABS: Hematocrit 32.1 % (36.0-46.0); Mean Corpuscular Volume 100.2 fL (80.0-100.0); Platelet Count (auto) 152 10^3/uL (140-450); White Blood Cell 23.8 10^3/uL (4.4-10.8)
[2024-07-01 06:15] LABS: Band Neutrophils % (manual) 0; Basophils % (manual) 0 (0.0-2.0); Blast Cells 0; Eosinophils % (manual) 0 (0-7); Metamyelocytes % 0; Myelocytes % 0; Promyelocytes % 0
[2024-07-01 07:45] LABS: Lymphocytes % (manual) 89 (10.0-50.0); Macrocytosis Slight; Monocytes % (manual) 1 (0-12); Platelet Estimate Adequate; Reactive Lymphocytes 2
[2024-07-01 08:45] VITALS: BP 142/71; PULSE 66; RESP 18; TEMP 97.8; O2SAT 93
[2024-07-01 13:18] VITALS: BP 145/82; PULSE 86; RESP 20; TEMP 97.9; O2SAT 95
--- NOTE | 2024-07-01 14:11 | DVHPN2 ---
Progress Note - Dictate Date Seen: Jul 01, 2024 Medical Necessity Reason Pt with a Central, PICC or Fol: No Subjective E: no major events o/n. no complaints. vital signs Vital Sign Date Time Temp Pulse Resp B/P (MAP) Pulse Ox O2 Delivery O2 Flow Rate FiO2 07/01/24 13:18 97.9 86 20 145/82 (103) 95 97.9 06/30/24 20:00 Room Air* 0 21 Total Intake and Output 06/30/24 06/30/24 07/01/24 15:00 23:00 07:00 Intake Total 250 ml 850 ml 100 ml Balance 250 ml 850 ml 100 ml medications Current Medications Medications Dose Ordered Sig/Daphney Route Start Time Stop Time Status Last Admin Dose Admin Sodium Chloride 10 ml Q8HR IV 06/28/24 22:00 07/01/24 06:18 10 ML Ondansetron HCl 4 mg Q4HP PRN IV 06/28/24 21:15 Acetaminophen 650 mg Q6HP PRN PO 06/28/24 21:15 06/30/24 17:02 650 MG Morphine Sulfate 2 mg Q4HPRN PRN IV 06/28/24 21:15 Enoxaparin Sodium 40 mg DAILY SC 06/28/24 21:15 07/01/24 10:33 40 MG Nitroglycerin 0.4 mg Q5MINP PRN SL 06/28/24 21:15 Morphine Sulfate 2 mg Q30M PRN IV 06/28/24 21:15 Vancomycin HCl 0 ml @ 0 mls/hr UD IV 06/28/24 23:15 Hydralazine HCl 10 mg Q6HP PRN IV 06/28/24 23:15 06/29/24 16:22 10 MG Vancomycin HCl 150 ml @ 150 mls/hr Q12H IV 06/29/24 10:00 07/01/24 10:31 150 MLS/HR Losartan Potassium 25 mg DAILY PO 06/30/24 10:00 07/01/24 10:33 25 MG Metoprolol Tartrate 25 mg BID PO 06/29/24 22:00 06/30/24 09:38 25 MG Piperacillin Sod/ Tazobactam Sod 100 ml @ 25 mls/hr Q8H IV 06/29/24 16:00 07/01/24 10:31 25 MLS/HR objective GEN: NAD RIGHT HAND: surgical site clean. no bleeding. laboratory and microbiology Laboratory Tests 07/01/24 05:43 06/29/24 05:17 Test 06/29/24 05:17 Range/Units Serum Glucose 99 74-106 mg/dL Assessment/Plan A: 1. s/p I+D right hand/wrist abscess POD #2. stable from surgery POV. P: 1. local wound care (BID moist to dry or qday with xeroform) 2. f/u in clinic on 07/11. call [phone] for appt Dietary Evaluation Review Comments: 1) Consider DEMI 1 pkt BID for wound 2) Continue current plan of care Expected Outcomes/Goals: 1) F/U in 3-5 days Plan discussed with: Patient MELANIA CHAKRABORTY MD Jul 01, 2024 14:11
[2024-07-01] MEDS ORDERED: LEVO500T91 PO (15:49)
--- NOTE | 2024-07-01 15:50 | DVHDS2 ---
Discharge Summary Date of Admission Jun 28, 2024 at 21:01 Date of Discharge: Jul 01, 2024 Labs/Diagnostic Data: Laboratory Results Test 07/01/24 05:43 06/30/24 09:56 06/29/24 05:17 06/28/24 21:20 White Blood Count 23.8 10^3/uL (4.4-10.8) Red Blood Count 3.20 10^6/uL (4.0-5.20) Hemoglobin 11.2 g/dL (12.2-16.2) Hematocrit 32.1 % (36.0-46.0) Mean Corpuscular Volume 100.2 fL (80.0-100.0) Mean Corpuscular Hemoglobin 35.0 pg (28.0-32.0) Mean Corpuscular Hemoglobin Concent 35.0 g/dL (32.0-36.0) Red Cell Distribution Width 14.2 % (11.8-14.3) Platelet Count 152 10^3/uL (140-450) Mean Platelet Volume 6.9 fL (6.9-10.8) Neutrophils (%) (Auto) % (37.0-80.0) Lymphocytes (%) (Auto) % (10.0-50.0) Monocytes (%) (Auto) % (0.0-12.0) Basophils (%) (Auto) % (0.0-2.0) Neutrophils # (Auto) 10 ^3/uL (1.6-8.6) Lymphocytes # (Auto) 10 ^3/uL (0.4-5.4) Monocytes # (Auto) 10 ^3/uL (0-1.3) Differential Total Cells Counted 100.0 (100) Neutrophils % (Manual) 8 (37.0-80.0) Band Neutrophils % (Manual) 0 Lymphocytes % (Manual) 89 (10.0-50.0) Monocytes % (Manual) 1 (0-12) Eosinophils % (Manual) 0 (0-7) Basophils % (Manual) 0 (0.0-2.0) Metamyelocytes % (manual) 0 Myelocytes % (Manual) 0 Promyelocytes % (Manual) 0 Blast Cells % (Manual) 0 Reactive Lymphocytes 2 Platelet Estimate Adequate Macrocytosis Slight Creatinine 1.03 mg/dL (0.550-1.02) Glomerular Filtration Rate Calc 56 mL/min (>90) Vancomycin Level Trough 16.3 ug/mL (5-10) Sodium Level 143 mmol/L (136-145) Potassium Level 4.2 mmol/L (3.5-5.1) Chloride Level 114 mmol/L (98-107) Carbon Dioxide Level 20 mmol/L (20-31) Anion Gap 9 (5-15) Blood Urea Nitrogen 15 mg/dL (9-23) BUN/Creatinine Ratio 17.9 (10.0-20.0) Serum Glucose 99 mg/dL (74-106) Calcium Level 8.6 mg/dL (8.7-10.4) Total Bilirubin 0.6 mg/dL (0.2-1.0) Aspartate Amino Transferase (AST) 10 U/L (13-40) Alanine Aminotransferase (ALT) < 9 U/L (7-40) Alkaline Phosphatase 36 U/L (46-116) Total Protein 5.4 g/dL (5.7-8.2) Albumin 3.4 g/dL (3.2-4.8) Anisocytosis (manual) Slight Prothrombin Time 10.9 sec (9.3-11.8) Prothrombin Time INR 1.03 (0.9-1.15) Activated Partial Thromboplast Time 26.1 SEC (24.5-34.5) Hemoglobin A1c 4.9 % A1C (<5.7) Lactic Acid Level 1.2 mmol/L (0.4-2.0) C-Reactive Protein High Sensitivity 0.16 mg/dL (<1.0) B-Type Natriuretic Peptide 51.03 pg/mL (0-100) Vitamin B12 Level 799 pg/mL (211-911) Vitamin D 25-Hydroxy 89.6 ng/mL (30.0-100) Folic Acid 17.85 ng/mL (>5.38) Thyroid Stimulating Hormone (TSH) 2.93 uIU/mL (0.55-4.78) Other Laboratory Tests 07/01/24 05:43 06/29/24 05:17 Brief Hx & Hospital Course: Anna Toussaint is a 79 years old female with a PMH of HTN, chronic lymphocytic leukemia, breast cancer, skin cancer presented to the ED with the chief complaints of nonhealing wound on the right wrist. Patient reported 6-8 weeks ago she had cat bite on the right breast, went to urgent care, tried several method and medications but unable to drain and heal. Again she went to urgent care today due to nonhealing, with intermittent pain, they advised to go to ED. patient reported no fever, nausea, vomiting, chills, sweats and other associated symptoms # right wrist wound abscess vs cellulitis -ordered wound culture and wound consult -initially given Rocephin and clindamycin -currently on vancomycin -consulted surgeon for further evaluation # leukocytosis likely due to chronic lymphocytic leukemia -monitor labs for now # # Hyperkalemia - Monitor lab # SIMA likely [facility] -monitor lab -encourage oral fluids # uncontrolled hypertension -continuously monitor blood pressure -resume home meds 06/29/2024: pt undergoing I&D today 06/30/2024: continue with IV Abx for another day 07/01/2024: discharged to home with self care and further oral Abx x 10 days Condition at Discharge: Fair Final Diagnosis/Problems List see above Discharge Disposition: Home Discharge Instruct/Medications Diet: Cardiac 2g Na,low cholest Activity: No Restrictions, As Tolerated Discharge Statement: "Patient was advised to return to the ER or call 911 if any headaches, dizziness, shortness of breath, chest pain, abdominal pain, bleeding, fevers, or worsening of medical condition. Patient was counseled about treatment plan, medications, possible side effects, patientverbalized understanding. All questions were answered to the best of my ability. This discharge took greater then 30 minutes in planning, reviewing documentation, counseling the patient, and discussing with other team members." ASSESSMENT ASSESSMENT Assessment Date of Service: Jul 01, 2024 Billing Provider: GAVINO BEE DO Common Visit Codes: [id number] DISCH DAY >30min GAVINO BEE DO Jul 01, 2024 15:50
[2024-07-01 16:55] VITALS: BP 149/82; PULSE 75; RESP 20; TEMP 97.9; O2SAT 92
--- NOTE | 2024-07-21 11:53 | DVHOP2 ---
Operative Report - 2 Report Details Date: 06/29/2024 Preop Diagnosis: Right wrist abscess Postop Diagnosis: Same Surgeon: Melania Foreman MD Legend Maker: None Anesthesiologist: Dr. Cevallos Anesthesia: Mac Consent: The patient was informed of the risks and benefits of the procedure. These include but are not limited to complications of anesthesia, postoperative infection, incomplete relief of symptoms, recurrence of symptoms, damage to blood vessels, nerves and tendons, deep venous thrombosis, pulmonary embolism and possible need for repeat surgery in the future. Complications: None Estimated Blood Loss: 10 mL Fluids: 200 mL Name of Procedure Performed Incision and drainage the right wrist abscess with biopsy Procedure Details Procedure Details: After induction of monitored anesthesia, patient's right wrist area was prepped and draped in standard surgical fashion. Patient had a proximally 2 cm skin lesion surrounding erythema. The skin lesion was then excised completely and sent off to pathology. There was very small amount liquid under the scab which was swabbed for Gram stain and culture. The base of the wound was quite fibrinous and this was curetted until healthier tissue was encountered with healthy bleeding. Direct pressure was applied for hemostasis. The area was then well irrigated and surgical dressing was applied. Sponge, needle, instrument count at the end of the case were reported to be correct by the nursing staff. The patient tolerated procedure well and was awakened transferred to recovery in stable condition. Specimen: Right wrist skin lesion Condition Stable Disposition Still a Patient MELANIA FOREAMN MD Jul 21, 2024 11:52
== END 2024-07-01 19:20 | disposition home or self-care (01) | DRG 606 ==
LOC: ER 10:25 → OVERFLOW 21:01 → EAST 21:02
PROVIDERS: ADMIT Internal Medicine; ATTEND Internal Medicine
PROC: 0HBDXZZ Excision of Right Lower Arm Skin, External Approach (ICD-10-PCS; principal; 2024-06-29 14:38)
DX: C44.622 Squamous cell carcinoma of skin of right upper limb, including shoulder (principal); N17.0 Acute kidney failure with tubular necrosis; L02.413 Cutaneous abscess of right upper limb; C91.10 Chronic lymphocytic leukemia of B-cell type not having achieved remission; L03.113 Cellulitis of right upper limb; I16.0 Hypertensive urgency; E87.5 Hyperkalemia; Z85.828 Personal history of other malignant neoplasm of skin; Z85.3 Personal history of malignant neoplasm of breast; Z80.3 Family history of malignant neoplasm of breast; Z80.0 Family history of malignant neoplasm of digestive organs; Z82.49 Family history of ischemic heart disease and other diseases of the circulatory system; Z98.84 Bariatric surgery status; Z79.899 Other long term (current) drug therapy
CPT/HCPCS: 36415; 71045; 73201; 80048; 80053; 80202; 82306; 82565; 82607; 82746; 83036; 83605; 83880; 84443; 85007; 85027; 85610; 85730; 86141; 87070; 87075; 87205; G0378; J2003; J2250; J2543; J2704; J3490